=== PATIENT | female | born 1955 | race Hispanic/Latino ===

== ENCOUNTER → 2021-04-19 | Outpatient (CLI) | payer MEDICARE ==
[~2021-04-19] MED LIST: ATENOLOL50 MG PO; ATORVASTATIN CA40 MG PO; FUROSEMIDE40 MG PO; HYDROCHLOROTHIA25 MG PO; LOSARTAN POTAS100 MG PO; NORCO 10-325 T1 EACH PO; NORCO 7.5-3251 EACH PO; TRAZODONE HCL50 MG PO; ULTRAM 50MG50 MG PO; XARELTO10 MG PO
== END ==
LOC: MRI 10:19
PROVIDERS: ATTEND Podiatrist Foot Surgery
DX: M25.571 Pain in right ankle and joints of right foot (principal); M25.471 Effusion, right ankle

== ENCOUNTER → 2021-06-21 | Outpatient (CLI) | payer MEDICARE | LOC: NM 08:14 | PROVIDERS: ATTEND Internal Medicine | DX: R79.1 Abnormal coagulation profile (principal) | CPT/HCPCS: 71046; 78580; A9540 ==